=== PATIENT | female | born 1990 | race Two or more races ===

== ENCOUNTER 2023-10-16 15:54 | Emergency (ER) | payer OTHER, MEDICAID ==
[~2023-10-16] VITALS: Ht 167.6 cm; Wt 72.7 kg
[2023-10-16 18:33] LABS: Urine Bacteria None Seen /hpf (None Seen)
[2023-10-16 18:58] LABS: Amphetamine Screen, Urine Neg (NEGATIVE); Barbiturate Scree,Urine Neg (NEGATIVE); Benzodiazephine Screen, Urine Neg (NEGATIVE)
[2023-10-16 18:59] LABS: Cannabinoid Screen, Urine Neg (NEGATIVE); Cocaine Screen, Urine Neg (NEGATIVE); Opiate Scree,Urine Neg (NEGATIVE); Phencyclidine Screen, Urine Neg (NEGATIVE)
[2023-10-16 19:09] LABS: Urine Blood Negative /uL (Negative); Urine Clarity Turbid (Clear); Urine Color Light-Yellow (Yellow); Urine Protein, UAD TRACE (Negative); Urine Specific Gravity 1.024 (1.001-1.035); Urine Urobilinogen Normal (Negative); Urine WBC 1 /hpf (0 - 5)
[2023-10-17 08:00] VITALS: RESP 18; O2SAT 98
[2023-10-17] MEDS: OLANZapine 5 MG TAB PO SCH (14:00)
[2023-10-17 20:30] VITALS: PULSE 82; RESP 16; O2SAT 98
[2023-10-18 10:00] VITALS: RESP 16; O2SAT 98
[2023-10-18 21:19] VITALS: PULSE 77; RESP 16; O2SAT 98
[2023-10-18 22:11] VITALS: BP 121/74; PULSE 77; RESP 16; TEMP 98.8; O2SAT 97
== END 2023-10-18 23:37 | disposition short-term general hospital (02) ==
LOC: ER 15:54
DX: R45.851 Suicidal ideations (principal); R44.0 Auditory hallucinations; Z79.899 Other long term (current) drug therapy
CPT/HCPCS: 80307; 81001; 81025